=== PATIENT | male | born 1990 | race American Indian/Alaskan Native ===

== ENCOUNTER 2017-01-04 21:30 | Emergency (ER) | payer OTHER ==
[2017-01-04 23:10] LABS: Basophils % (Auto) 0.5 % (0.0-1.8); Eosinophils % (Auto) 2.3 % (0.0-4.3); Hematocrit 40.6 % (35.5-45.6); Hemoglobin 13.8 gm/dl (11.8-15.2); Mean Corpuscular HGB Conc 34 % (32-34); Mean Corpuscular Hemoglobin 30 pg (28-32); Mean Corpuscular Volume 88 fl (84-94); Platelet Count 195 K/mm3 (140-440); Red Cell Distribution Width 13.6 % (13.2-15.2); White Blood Count 3.5 K/mm3 (4.5-11.0)
[2017-01-04 23:15] LABS: Alanine Aminotransferase 13 units/L (7-56); Albumin 4.5 g/dL (3.9-5); Alkaline Phosphatase 69 units/L (35-129); Anion Gap 16 mmol/L; BUN/Creatinine Ratio 16; Blood Urea Nitrogen 13 mg/dL (9-20); Calcium 9.1 mg/dL (8.4-10.2); Carbon Dioxide 28 mmol/L (22-30); Chloride 98.9 mmol/L (98-107); Glucose 78 mg/dL (75-100); Lipase 23 units/L (13-60); Potassium 3.5 mmol/L (3.6-5.0); Sodium 139 mmol/L (137-145); Total Protein 6.7 g/dL (6.3-8.2)
[2017-01-04 23:55] LABS: Bilirubin,Urine NEG (Negative); Blood,Urine NEG (Negative); Ketones,Urine NEG (Negative); Leukocyte Esterase,Urine NEG (Negative); Mucus,Urine 2+ /HPF; Nitrite,Urine NEG (Negative); Protein,Urine <15 mg/dL mg/dL (Negative); Urobilinogen,Urine < 2.0 mg/dL (<2.0)
[2017-01-05] MEDS ORDERED: ZOFRAN IV ONE (08:33)
[2017-01-05] MEDS ORDERED: MORPHINE IV ONE (08:33)
[2017-01-05] MEDS ORDERED: NACL 0.9% 1000 ML 1,000 ML IV ONE (08:34)
--- NOTE | 2017-01-05 08:45 | Emergency Department Report ---
HPI - General Chief Complaint: Abdominal Pain Time Seen by Provider: 01/05/17 08:24 - HPI HPI: This is a 26-year-old [place] male presents to the emergency department from home with complaint of a 1.5 day history of upper abdominal pain, nausea and vomiting. Patient says he vomited a total of about 3-4 times. He has not taken anything for her symptoms prior to presentation. He denies any past medical history. He denies any recent travel or sick contacts at home. He does not have a primary care physician. ED Past Medical Hx - Past Medical History Previous Medical History?: No - Surgical History Past Surgical History?: No - Social History Smoking Status: Current Every Day Smoker Substance Use Type: Alcohol, Marijuana - Medications Home Medications: Home Medications Medication Instructions Recorded Confirmed Last Taken Type Promethazine [Phenergan] 25 mg PO HS #7 tab 06/08/14 Unknown Rx Bacitracin Zinc Oint 1 applicatio TP TID #1 tube 05/14/15 Unknown Rx Glycerin/Propylene Glycol 30 ml OU QID #500 drops 05/14/15 Unknown Rx [Artificial Tears Drops] oxyCODONE [Roxicodone TAB] 5 mg PO Q6HR PRN #10 tablet 05/14/15 Unknown Rx HYDROcodone/ACETAMINOPHEN [[place] 1 each PO Q6H PRN #10 tablet 01/05/17 Unknown Rx 5-325 Tablet] Ondansetron [Zofran Odt] 4 mg PO Q8H PRN #10 tab.rapdis 01/05/17 Unknown Rx ED Review of Systems ROS: Stated complaint: N/V/D Other details as noted in HPI Comment: All other systems reviewed and negative Constitutional: denies: chills, fever Eyes: denies: eye pain, eye discharge, vision change ENT: denies: ear pain, throat pain Respiratory: denies: cough, shortness of breath, wheezing Cardiovascular: denies: chest pain, palpitations Gastrointestinal: abdominal pain, nausea, vomiting Genitourinary: denies: urgency, dysuria Musculoskeletal: denies: back pain, joint swelling, arthralgia Skin: denies: rash, lesions Neurological: denies: headache, weakness, paresthesias Physical Exam - Physical Exam Vital Signs: Vital Signs 01/04/17 01/04/17 01/05/17 21:38 22:05 01:57 Temperature 98.6 F 98.6 F 98.3 F Pulse Rate 95 H 95 H 79 Respiratory 18 18 Rate Blood Pressure 104/72 104/72 114/84 O2 Sat by Pulse 100 100 99 Oximetry 01/05/17 05:17 Temperature 98.3 F Pulse Rate 61 Respiratory 18 Rate Blood Pressure 101/65 O2 Sat by Pulse 100 Oximetry Physical Exam: GENERAL: The patient is well-developed well-nourished. HENT: Normocephalic. Atraumatic. Patient has moist mucous membranes. EYES: Extraocular motions are intact. Pupils equal reactive to light bilaterally. NECK: Supple. Trachea is midline. CHEST/LUNGS: Clear to auscultation. There is no respiratory distress noted. HEART/CARDIOVASCULAR: Regular. There is no tachycardia. There is no gallop rub or murmur. ABDOMEN: Abdomen is soft. There is some reproducible tenderness to palpation to the upper quadrants of the abdomen but no guarding or rebound tenderness. Patient has normal bowel sounds. There is no abdominal distention. SKIN: Skin is warm and dry. NEURO: The patient is awake, alert, and oriented. The patient is cooperative. The patient has no focal neurologic deficits. The patient has normal speech. MUSCULOSKELETAL: There is no tenderness or deformity. There is no limitation range of motion. There is no evidence of acute injury. ED Course Vital Signs 01/04/17 01/04/17 01/05/17 21:38 22:05 01:57 Temperature 98.6 F 98.6 F 98.3 F Pulse Rate 95 H 95 H 79 Respiratory 18 18 Rate Blood Pressure 104/72 104/72 114/84 O2 Sat by Pulse 100 100 99 Oximetry 01/05/17 05:17 Temperature 98.3 F Pulse Rate 61 Respiratory 18 Rate Blood Pressure 101/65 O2 Sat by Pulse 100 Oximetry ED Medical Decision Making - Lab Data Result diagrams: 01/04/17 22:42 01/04/17 22:42 - Radiology Data Radiology results: report reviewed, image reviewed interpreted by me: Abdominal x-ray shows some nonspecific nonobstructive bowel gas. PROCEDURE: US ABDOMEN LIMITED TECHNIQUE: Real-time sonography was performed of the abdomen with image documentation. CPT 15084 HISTORY: upper abdomen pain COMPARISON: None FINDINGS: There is no ascites. The proximal abdominal aorta is normal in size. There is no focal abnormality seen of the liver, right kidney, or pancreas. The right kidney measures 12.5 centimeters in length. The gallbladder is normally distended without stones or wall thickening. CBD is 1.4 millimeters in diameter.. IMPRESSION: Normal Examination Transcribed By: DEREK Dictated By: MARINA GALVEZ MD Electronically Authenticated By: MARINA GALVEZ MD Signed Date/Time: 01/05/17 0657 - Medical Decision Making 26-year-old male presents with some upper abdominal pain, nausea and vomiting. There is been no further vomiting since being in the emergency department. Abdomen is soft and does not appear toxic or rigid. Abdominal x-ray shows nonspecific nonobjective bowel gas. Upper abdominal ultrasound does not show any acute process. Labs are unremarkable. Vital signs stable throughout his ED course. He appears safe for discharge home at this time. He has been given referrals for primary care and will go home with some pain medication and nausea medications. He will return to the ER with any worsening of his symptoms or any acute distress. - Differential Diagnosis gastroenteritis, food poisoning, pancreatitis, cholelithiasis Critical Care Time: No Critical care attestation.: If time is entered above; I have spent that time in minutes in the direct care of this critically ill patient, excluding procedure time. ED Disposition Clinical Impression: Abdominal pain Qualifiers: Abdominal location: upper abdomen, unspecified Qualified Code(s): R10.10 - Upper abdominal pain, unspecified Nausea & vomiting Qualifiers: Vomiting type: unspecified Vomiting Intractability: non-intractable Qualified Code(s): R11.2 - Nausea with vomiting, unspecified Disposition: DC-01 TO HOME OR SELFCARE Is pt being admited?: No Condition: Stable Instructions: Acute Nausea and Vomiting (ED), Abdominal Pain (ED) Additional Instructions: Increase your oral rehydration. Follow up with a primary care physician in the next few days. Return to the emergency Department with any worsening of your symptoms or any acute distress. You have been prescribed a medication that is sedating and therefore should not be taken prior to driving, working, and responsible for children and in no way should be mixed with alcohol of any quantity. Prescriptions: HYDROcodone/ACETAMINOPHEN [[place] 5-325 Tablet] 1 each PO Q6H PRN #10 tablet PRN Reason: Pain Ondansetron [Zofran Odt] 4 mg PO Q8H PRN #10 tab.rapdis PRN Reason: Nausea Referrals: GARCIA SANTAMARIA MD [Staff Physician] - [facility] - [facility] Days Forms: Work/School Release Form(ED) Time of Disposition: 11:38
--- NOTE | 2017-01-05 09:19 | XRay Report ---
ABDOMINAL SERIES THREE VIEWS: 01/05/17 CLINICAL: Abdominal pain. FINDINGS: Supine and upright views demonstrate a normal bowel gas pattern with moderate volume of stool in the colon. Minimal small bowel distention. A single mildly dilated loop of small bowel in the right abdomen with air-fluid level. No pneumoperitoneum. No mass or suspicious calcifications. The bones and soft tissues are normal. IMPRESSION: Negative abdomen.
--- NOTE | 2017-01-05 11:29 | Ultrasound Report ---
FINAL REPORT PROCEDURE: US ABDOMEN LIMITED TECHNIQUE: Real-time sonography was performed of the abdomen with image documentation. CPT 36464 HISTORY: upper abdomen pain COMPARISON: None FINDINGS: There is no ascites. The proximal abdominal aorta is normal in size. There is no focal abnormality seen of the liver, right kidney, or pancreas. The right kidney measures 12.5 centimeters in length. The gallbladder is normally distended without stones or wall thickening. CBD is 1.4 millimeters in diameter.. IMPRESSION: Normal Examination
[2017-01-05 11:52] VITALS: BP 97/55
== END 2017-01-05 11:52 | disposition home or self-care (01) ==
LOC: ED 21:30
DX: R10.10 Upper abdominal pain, unspecified (principal); R11.2 Nausea with vomiting, unspecified; F17.200 Nicotine dependence, unspecified, uncomplicated; F10.10 Alcohol abuse, uncomplicated; F12.10 Cannabis abuse, uncomplicated
CPT/HCPCS: 36415; 74020; 76705; 80053; 81001; 83690; 85025; 96361; 96374; 96375; 99284; J2270; J2405; J7030

== ENCOUNTER 2017-06-19 10:01 | Emergency (ER) | payer SELFPAY ==
[2017-06-19] MEDS ORDERED: TYLENOL ONE (11:24)
[2017-06-19] MEDS ORDERED: TYLENOL PO ONE (11:32)
--- NOTE | 2017-06-19 11:32 | Emergency Department Report ---
ED Male HPI - General Chief complaint: Urogenital-Male Stated complaint: BODY PAIN Time Seen by Provider: 06/19/17 11:03 Source: patient Mode of arrival: Ambulatory Limitations: No Limitations - History of Present Illness Initial comments: 27-year-old male past medical history none presents with complaint of one-week of sore throat and dysuria with increased urinary frequency. Complains of some body aches. Also complains of some penile discharge. Patient is awake alert and oriented 3 not in acute distress. Denies any hematuria or abdominal pain. MD Complaint: penile discharge, dysuria Onset/Timin -: week(s) Location: penis Severity: moderate Consistency: intermittent Improves with: none - Related Data Previous Rx's Medication Instructions Recorded Last Taken Type Promethazine [Phenergan] 25 mg PO HS #7 tab 06/08/14 Unknown Rx Bacitracin Zinc Oint 1 applicatio TP TID #1 tube 05/14/15 Unknown Rx Glycerin/Propylene Glycol 30 ml OU QID #500 drops 05/14/15 Unknown Rx [Artificial Tears Drops] oxyCODONE [Roxicodone TAB] 5 mg PO Q6HR PRN #10 tablet 05/14/15 Unknown Rx HYDROcodone/ACETAMINOPHEN [[place] 1 each PO Q6H PRN #10 tablet 01/05/17 Unknown Rx 5-325 Tablet] Ondansetron [Zofran Odt] 4 mg PO Q8H PRN #10 tab.rapdis 01/05/17 Unknown Rx Ciprofloxacin HCl [Cipro] 500 mg PO BID #20 tablet 06/19/17 Unknown Rx Ibuprofen [Motrin] 600 mg PO Q8H PRN #25 tablet 06/19/17 Unknown Rx Allergies Allergy/AdvReac Type Severity Reaction Status Date / Time No Known Allergies Allergy Verified 05/14/15 13:23 ED Review of Systems ROS: Stated complaint: BODY PAIN Other details as noted in HPI ED Past Medical Hx - Past Medical History Previous Medical History?: No - Surgical History Past Surgical History?: No - Social History Smoking Status: Current Every Day Smoker Substance Use Type: Alcohol, Marijuana - Medications Home Medications: Home Medications Medication Instructions Recorded Confirmed Last Taken Type Promethazine [Phenergan] 25 mg PO HS #7 tab 06/08/14 Unknown Rx Bacitracin Zinc Oint 1 applicatio TP TID #1 tube 05/14/15 Unknown Rx Glycerin/Propylene Glycol 30 ml OU QID #500 drops 05/14/15 Unknown Rx [Artificial Tears Drops] oxyCODONE [Roxicodone TAB] 5 mg PO Q6HR PRN #10 tablet 05/14/15 Unknown Rx HYDROcodone/ACETAMINOPHEN [[place] 1 each PO Q6H PRN #10 tablet 01/05/17 Unknown Rx 5-325 Tablet] Ondansetron [Zofran Odt] 4 mg PO Q8H PRN #10 tab.rapdis 01/05/17 Unknown Rx Ciprofloxacin HCl [Cipro] 500 mg PO BID #20 tablet 06/19/17 Unknown Rx Ibuprofen [Motrin] 600 mg PO Q8H PRN #25 tablet 06/19/17 Unknown Rx ED Physical Exam - General Limitations: No Limitations General appearance: alert, in no apparent distress - Head Head exam: Present: atraumatic, normocephalic - Eye Eye exam: Present: normal appearance - ENT ENT exam: Present: mucous membranes moist - Expanded ENT Exam Expanded Mouth exam: Present: normal external inspection Throat exam: Positive: normal inspection - Neck Neck exam: Present: normal inspection - Respiratory Respiratory exam: Present: normal lung sounds bilaterally. Absent: respiratory distress - Cardiovascular Cardiovascular Exam: Present: regular rate, normal rhythm. Absent: systolic murmur, diastolic murmur, rubs, gallop - GI/Abdominal GI/Abdominal exam: Present: soft, normal bowel sounds - Rectal Rectal exam: Present: deferred - Extremities Exam Extremities exam: Present: normal inspection - Back Exam Back exam: Present: normal inspection - Neurological Exam Neurological exam: Present: alert, oriented X3 - Psychiatric Psychiatric exam: Present: normal affect, normal mood - Skin Skin exam: Present: warm, dry, intact, normal color. Absent: rash ED Course Vital Signs 06/19/17 06/19/17 10:31 12:09 Temperature 99.5 F Pulse Rate 82 65 Respiratory 18 16 Rate Blood Pressure 113/76 113/66 O2 Sat by Pulse 98 100 Oximetry ED Medical Decision Making - Medical Decision Making A/P: Urethritis, possible UTI 1- patient empirically treated with azithromycin and ceftriaxone. 2- GC cultures sent, urine culture sent, rapid strep negative 3- Motrin when necessary 4- as per my discussion with Dr. Lin will also give patient a course of ciprofloxacin 10 days course Critical care attestation.: If time is entered above; I have spent that time in minutes in the direct care of this critically ill patient, excluding procedure time. ED Disposition Clinical Impression: Urethritis Urinary tract infection Qualifiers: Urinary tract infection type: acute cystitis Hematuria presence: without hematuria Qualified Code(s): N30.00 - Acute cystitis without hematuria Disposition: TO HOME OR SELFCARE Is pt being admited?: No Does the pt Need Aspirin: No Condition: Stable Instructions: Nonspecific Urethritis in Men (ED), Urinary Tract Infection in Men (ED) Prescriptions: Ciprofloxacin HCl [Cipro] 500 mg PO BID #20 tablet Ibuprofen [Motrin] 600 mg PO Q8H PRN #25 tablet PRN Reason: Pain Referrals: [facility] [Provider Group] - 3-[address] [facility] [Outside] - 3-5 Days [facility] [Outside] - 3-5 Days Forms: STI Treatment and Prevention Time of Disposition: 12:07
[2017-06-19 11:39] LABS: Bacteria,Urine 1+ /HPF (Negative); Bilirubin,Urine NEG (Negative); Blood,Urine NEG (Negative); Color,Urine Yellow (Yellow); Mucus,Urine 3+ /HPF; Urobilinogen,Urine < 2.0 mg/dL (<2.0)
[2017-06-19] MEDS ORDERED: ROCEPHIN IM ONE (12:03)
[2017-06-19] MEDS ORDERED: ZITHROMAX PO ONE (12:03)
[2017-06-19] MEDS ORDERED: XYLOCAINE 1% MPF 5 mL INFILTRATI ONE (12:03)
[2017-06-19 12:15] VITALS: BP 113/66
== END 2017-06-19 12:15 | disposition home or self-care (01) ==
LOC: ED 10:01
DX: N30.00 Acute cystitis without hematuria (principal); N34.2 Other urethritis; F17.200 Nicotine dependence, unspecified, uncomplicated; F12.10 Cannabis abuse, uncomplicated
CPT/HCPCS: 81001; 87086; 87116; 87430; 87591; 96372; 99283; J0696

== ENCOUNTER 2017-09-02 12:40 | Emergency (ER) | payer SELFPAY ==
[2017-09-02 12:55] VITALS: BP 124/75
--- NOTE | 2017-09-02 15:53 | Emergency Department Report ---
Chief Complaint: Medical Clearance Stated Complaint: ALLERGIC REACTION Time Seen by Provider: 09/02/17 15:42 - HPI History of Present Illness: Patient is a 27-year-old Spanish male who is presenting with possible allergic reaction. Patient showed me a picture of his face which shows hives this morning which is now resolved. Patient has no symptoms at this time. Patient does not know if he is allergic to anything in particular. Patient's last meal was last night and he had some boiled peanuts. Patient's eating peanuts before with no issue. no resp distress nausea vomiting at this time. - ROS Review of Systems: All other systems are reviewed and are negative - Exam Vital Signs: Vital Signs 09/02/17 12:45 Temperature 98.3 F Pulse Rate 56 L Respiratory 16 Rate Blood Pressure 124/75 O2 Sat by Pulse 99 Oximetry Physical Exam: Focused physical exam patient's skin is clear and there is no rash present. Patient has clear lungs heart exam. MSE screening note: Focused history and physical exam performed. Due to findings the following was ordered: ED Medical Decision Making - Medical Decision Making She given advice to avoid peanuts and also take Benadryl if he ever sees any rash or hives. Patient referred to primary care. Patient is not medical emergency and is soft not pale $150 co-pay. ED Disposition for MSE Clinical Impression: Allergic reaction Qualifiers: Encounter type: initial encounter Qualified Code(s): T78.40XA - Allergy, unspecified, initial encounter Disposition: MED SCREENING EXAM-LEFT Is pt being admited?: No Does the pt Need Aspirin: No Condition: Stable Instructions: Allergies (ED), Food Allergy (ED) Referrals: PRIMARY CARE, [Primary Care Provider] - 3-5 Days Time of Disposition: 15:53
== END 2017-09-02 15:59 | disposition left against medical advice (07) ==
LOC: ED 12:40
DX: T78.40XA Allergy, unspecified, initial encounter (principal); X58.XXXA Exposure to other specified factors, initial encounter
CPT/HCPCS: 99282

== ENCOUNTER 2018-06-10 23:05 | Emergency (ER) | payer SELFPAY | END 2018-06-11 01:20 | disposition left against medical advice (07) | LOC: ED 23:05 | DX: J02.9 Acute pharyngitis, unspecified (principal); Z53.21 Procedure and treatment not carried out due to patient leaving prior to being seen by health care provider ==